=== PATIENT | male | born 1975 | race Caucasian/White ===

== ENCOUNTER 2017-02-18 00:04 | Emergency (ER) | payer OTHER ==
[~2017-02-18] VITALS: Ht 182.9 cm; Wt 99.8 kg
[~2017-02-18 00:04] MED LIST: ACID REFLUX
--- NOTE | 2017-02-18 00:30 | NUR ---
No puncture woud noted or redness on left great toe
--- NOTE | 2017-02-18 00:40 | NUR ---
Dr Sexton into eval Patient
--- NOTE | 2017-02-18 01:12 | NUR ---
Patient discharged to home in stable conditon. Written and verbal after care instructions given. Patient verbalizes understanding of instructions. walked out of ER with no distress
[2017-02-18 01:14] VITALS: BP 128/79
== END 2017-02-18 01:15 | disposition home or self-care (01) ==
LOC: ER 00:11
DX: M79.675 Pain in left toe(s) (principal); K21.9 Gastro-esophageal reflux disease without esophagitis; Z88.1 Allergy status to other antibiotic agents; Z88.2 Allergy status to sulfonamides
CPT/HCPCS: 99281; A4663

== ENCOUNTER 2017-03-31 01:46 | Emergency (ER) | payer OTHER ==
[~2017-03-31] VITALS: Ht 182.9 cm; Wt 83.9 kg
--- NOTE | 2017-03-31 01:56 | NUR ---
ER MD at bedside for patient evaluation
--- NOTE | 2017-03-31 02:00 | NUR ---
PATIENT WALKED INTO ER C/O RIGHT SIDE CP 5/10 NON RADIATING X5HRS ON AND OFF. DENIES SOB,N/V
--- NOTE | 2017-03-31 02:10 | NUR ---
Patient discharged to home in stable conditon. Written and verbal after care instructions given. Patient verbalizes understanding of instructions. WITH NO DISTRESS NOTED
[2017-03-31 02:14] VITALS: BP 141/80
== END 2017-03-31 02:15 | disposition home or self-care (01) ==
LOC: ER 01:48
DX: R07.89 Other chest pain (principal); K21.9 Gastro-esophageal reflux disease without esophagitis; Z88.2 Allergy status to sulfonamides
CPT/HCPCS: 93005; A4663